=== PATIENT | female | born 1960 | race African-American/Black ===

== ENCOUNTER 2018-03-09 18:36 | Emergency (ER) | payer OTHER ==
[~2018-03-09] VITALS: Ht 180.3 cm; Wt 81.8 kg
[~2018-03-09 18:36] MED LIST: MOTRIN 600600 MG/TAB PO; MOTRIN800 MG PO; MULTIPLE VITAMI1 CAP PO
[2018-03-09 18:41] VITALS: TEMP 97.9
[2018-03-09] MEDS ORDERED: ALDACTONE 25MG25 M1 PO (18:55)
[2018-03-09 19:11] LABS: COLLECTION METHOD CLEAN CATCH
[2018-03-09 19:19] LABS: BASO # 0.1 (0.0-0.2); BASO % 0.5 % (0.0-2.0); EOS # 0.2 (0.0-0.7); EOS % 1.5 % (0-4.0); GRAN # 5.6 (1.4-6.5); GRAN % 42.6 % (42.2-75.2); HEMATOCRIT 41.8 % (37.0-47.0); LYMPH # 6.4 (1.2-3.4); LYMPH % 48.5 % (20.0-51.0); MEAN CELL VOLUME 92 fl (80.0-100.0); MEAN CORPUSCULAR HEMOGLOBIN 31 pg (27.0-31.0); MEAN CORPUSCULAR HGB CONC 34 g/dl (33.0-37.0); MEAN PLATELET VOLUME 10.5 fl (7.4-10.4); MONO # 0.9 (0.1-0.6); MONO % 6.7 % (1.7-9.3); PLATELET COUNT 237 K/mm3 (130-400); RED BLOOD COUNT 4.53 M/mm3 (4.10-5.30); REDCELL DISTRIBUTION WIDTH-CV 13.2 % (11.5-14.5)
[2018-03-09 19:21] LABS: PH 6 (5-8); SQUAMOUS EPITHELIAL None Seen /hpf; URINE APPEARANCE Clear; URINE BACTERIA None Seen /hpf; URINE BILIRUBIN Negative (NEGATIVE); URINE BLOOD Negative (NEGATIVE); URINE COLOR Straw; URINE GLUCOSE Negative (NEGATIVE); URINE KETONE Negative (NEGATIVE); URINE LEUKOCYTE ESTERASE 1+ (NEGATIVE); URINE NITRATE Negative (NEGATIVE); URINE PROTEIN(semi-quant) Negative (NEGATIVE); URINE RBC 0-2 /hpf; URINE UROBILINOGEN Negative (NEGATIVE)
[2018-03-09 19:37] LABS: ALBUMIN 4.2 gm/dL (3.5-5.0); BILIRUBIN,TOTAL 0.6 mg/dL (0.0-1.0); CALCIUM 8.9 mg/dL (8.4-10.2); CREATININE, serum 0.85 mg/dL (0.52-1.25); POTASSIUM 3.6 mmol/L (3.4-5.0); TOTAL PROTEIN 7.4 gm/dL (6.4-8.2)
[2018-03-09 20:50] VITALS: BP 140/79; PULSE 70
== END 2018-03-09 20:52 | disposition home or self-care (01) ==
LOC: COL.ER 18:36
PROVIDERS: Emergency Medicine
DX: N20.0 Calculus of kidney (principal); D25.9 Leiomyoma of uterus, unspecified; I10 Essential (primary) hypertension; Z87.442 Personal history of urinary calculi; Z90.49 Acquired absence of other specified parts of digestive tract; Z88.1 Allergy status to other antibiotic agents
CPT/HCPCS: J1885; J2405; J7030; Q9967